=== PATIENT | female | born 1965 | race Caucasian/White ===

== ENCOUNTER 2024-02-22 11:26 | Outpatient (CLI) | payer MEDICARE, SELFPAY ==
--- NOTE | ~2024-02-22 | MM_ITS ---
EXAMINATION: MM screening christa BI w chen HISTORY: Screening TECHNIQUE: Craniocaudal and mediolateral oblique 3-D tomosynthesis images were obtained and synthetic 2-D images were generated. CAD analysis was submitted and interpreted. COMPARISON: No prior mammogram is available for comparison at this institution. BREAST PARENCHYMAL COMPOSITION: Not dense: There are scattered areas of fibroglandular density. FINDINGS: There is no evidence of suspicious mass, calcification, or architectural distortion to sugg est malignancy in either breast. There has been no suspicious interval change. IMPRESSION: 1. No mammographic evidence of malignancy. 2. Recommend routine screening mammography in one year. BI-RADS Category 1: Negative Reviewed, dictated and finalized at location B. CURER
== END 2024-02-22 11:27 | disposition home or self-care (01) ==
LOC: MICIMG 11:27
PROVIDERS: PCP Internal Medicine; Visit Provider Internal Medicine
DX: Z12.31 Encounter for screening mammogram for malignant neoplasm of breast (principal)
CPT/HCPCS: 77063; 77067

== ENCOUNTER 2024-10-27 11:53 | Outpatient (CLI) | payer OTHER, SELFPAY ==
--- NOTE | ~2024-10-27 | DEXA_ITS ---
Bone Density Report Name: MARY TAMAYO Age: 59 Sex: Female Ethnicity: White Date of : 1965 Indication: postmenopausal; screening for osteoporosis; Referring Provider: Cheryl Denny Study: Bone densitometry was performed. Exam Date: October 27, 2024 Accession number: [id number] Bone Density: Region BMD T-score Z-score Classification AP Spine(L1-L4) 0.995 -0.5 1.0 Normal Femoral Neck (Left) 0.714 -1.2 0.1 Osteopenia Total Hip (Left) 0.997 0.5 1.4 Normal Femoral Neck (Right) 0.787 -0.6 0.7 Normal Total Hip (Right) 0.975 0.3 1.2 Normal Femoral Neck Mean 0.750 -0.9 0.4 Normal Total Hip Mean 0.986 0.4 1.3 Normal World Health Organization criteria for BMD impression classify patients as: Normal (T-score at or above -1.0), Osteopenia (T-score between -1.0 and -2.5), or Osteoporosis (T-score at or below -2.5). 10-year Fracture Risk(1): Major Osteoporotic Fracture 7.5% Hip Fracture 0.5% Reported Risk Factors: [place] (), Neck BMD=0.714, BMI=26.6 (1) FRAX(R) Version 3.08. Fracture probability calculated for an untreated patient. Fracture probability may be lower if the patient has received treatment. Clinical Information Provided by Patient: Has used the following medications: Vitamin D, Calcium, multivitamin Patient maximum height was 53 Menopause Age: 47 No regular weight bearing exercise Does not regularly consume dairy products Drinks caffeinated beverages Onset of menses at age 11 Number of children 3 Missed period for more than 6 months in a row Impression: The patient has low bone mass, based on the Left Femoral Neck T-score. Discussion: BONE DENSITY IS LOW AT ONE OR MORE SKELETAL SITES. This patient's lowest T-score is low at one or more skeletal sites. It meets the World Health Organization's (WHO) criteria for ?low bone mass? (T-score between -1.0 and -2.5). The patient's 10-year risk of fracture as calculated by FRAX is less than the threshold where pharmacological therapy is recommended by the National Osteoporosis Foundation (NOF). However, all treatment decisions require clinical judgment and consideration of individual patient factors, including patient preferences, comorbidities, previous drug use, risk factors not captured in the FRAX model (e.g., frailty, falls, vitamin D deficiency, increased bone turnover, interval significant decline in bone density) and possible under or overestimation of fracture risk by FRAX. The patient should follow a healthful lifestyle (good nutrition with adequate calcium and vitamin D, and appropriate weight-bearing exercise). Follow-Up: Consider repeating this study in 2 to 3 years to reassess this patient's status, or sooner if there is some new clinical indication. Reported by: SHAWNA on 10/31/2024 7:40:00 AM. Reviewed, dictated and finalized at location A.
== END 2024-10-27 11:54 | disposition home or self-care (01) ==
PROVIDERS: PCP Internal Medicine; Visit Provider Internal Medicine
DX: Z78.0 Asymptomatic menopausal state (principal); M85.88 Other specified disorders of bone density and structure, other site
CPT/HCPCS: 77080

== ENCOUNTER 2025-01-08 07:47 | Outpatient (CLI) | payer MEDICARE, SELFPAY ==
--- OUTSIDE RECORDS SUMMARY | 2025-01-08 07:52 | XMS_ITS | Clinical Summary ---
Author Organization [facility] Address [address] [place] [address] Care Team Providers Care Fire And Explosion Investigator Name Role Phone Cara Aguilar MD Primary Care Provider Social History Tobacco Use Types Packs/Day Years Used Date Smoking Tobacco: Never Assessed Comments Unknown Sex and Gender Information Value Date Recorded Sex Assigned at Not on file Legal Sex Female 9:19 PM MST Gender Identity Not on file Sexual Orientation Not on file Plan of Treatment Health Maintenance Due Date Last Done Comments CT Colonography 1965 Cologuard 1965 Colonoscopy 1965 Colorectal Cancer Screening 1964 FOBT/FIT 1965 Sigmoidoscopy 1965 MMR Vaccines (1 of 1 - Standard series) 1965 PHQ-9 Depression Screen 1976 Complete Annual HRA 1982 LONNY-7 Anxiety Screen 1982 DTaP,Tdap,and Td Vaccines (1 - Tdap) 1983 Cervical Cancer Screening (Pap/HPV) 1985 Pneumococcal Vaccine: 50+ Years (2 of 2 - PCV20 or PCV21) 10/26/2018 10/26/2017 Mammogram 10/02/2021 10/03/2019, 03/09, 11/14/2018, Additional history exists COVID-19 Vaccine ( - season) 2024 05/20/2020, 05/08/2020, 04/27/2020, Additional history exists Influenza Vaccine (#1) 2024 01/07/2016 RSV Vaccine (SCDM) (1 - 1-dose 75+ series) 2039 Zoster Vaccines Completed 01/25/2018, 10/26/2017 Hepatitis B Vaccines Aged Out No long er eligible based on patient's age to complete this topic Procedures Procedure Name Priority Date/Time Associated Diagnosis Comments MAMMOGRAM, 3D SCREENING BILATERAL Routine 10/03/2019 11:46 AM [facility] Encounter for screening mammogram for malignant neoplasm of breast from Last 3 Months or Most Recently Relevant to Health Maintenance Results * Mammogram breast screening bilateral (10/03/2019 11:46 AM [facility]) Anatomical Region Laterality Modality Breast Bilateral Mammography 10/03/2019 11:4 6 AM MST Narrative 10/05/2019 11:58 AM [facility] LOCATION:[facility] DATE OF SERVICE: 10/03/2019 11:45 AM BILATERAL SCREENING MAMMOGRAM ORDERING PROVIDER: Alejandra Lobato INDICATION FOR STUDY/PERTINENT MEDICAL HX: Patient is a 54 years old female who presents for routine bilateral screening mammogram. TECHNIQUE: Routine bilateral craniocaudal and mediolateral oblique 2D views are obtained with 3D tomosynthesis images in craniocaudal and mediolateral oblique projections. COMPARISON: April 04, 2019, November 14, 2018, September 29, 2018, January 15, 2017 FINDINGS: Standard 3D with tomosynthesis views of the breasts demonstrate stable focal asymmetries. There are no dominant masses, suspicious clusters of microcalcifications, or areas of architectural distortion in either breast. There is no skin or nipple retraction or focal skin thickening in either breast. No axillary adenopathy is identified in either side. IMPRESSION: No mammographic evidence of malignancy. Recommend Return to screening mammography unless clinical symptoms dictate otherwise. ASSESSMENT: BI-RADS Category 1 Negative. Breast Composition: B: There are scattered areas of fibroglandular density Screening mammography performed with use of computer-aided detection (CAD). The patient will be notified of these results and any follow up imaging will be arranged by the medical imaging department. For questions or to reach a radiologist, please call [phone] . Procedure Note Rolanda Dominguez MD - 10/05/2019 LOCATION:[facility] DATE OF SERVICE: 10/03/2019 11:45 AM BILATERAL SCREENING MAMMOGRAM ORDERING PROVIDER: Alejandra Lobato INDICATION FOR STUDY/PERTINENT MEDICAL HX: Patient is a 54 years old female who presents for routine bilateralscreening mammogram. TECHNIQUE: Routine bilateral craniocaudal and mediolateral oblique 2Dviews are obtained with 3D tomosynthesis images in craniocaudal andmediolateral oblique projections. COMPARISON: April 04, 2019, November 14, 2018, September 29, 2018, 2016 FINDINGS: Standard 3D with tomosynthesis views of the breasts demonstratestable focal asymmetries. There are no dominant masses, suspiciousclusters of microcalcifications, or areas of architectural distortion ineither breast. There is no skin or nipple retraction or focal skinthickening in either breast. No axillary adenopathy is identified ineither side. IMPRESSION: No mammographic evidence of malignancy. Recommend Return to screening mammography unless clinical symptomsdictate otherwise. ASSESSMENT: BI-RADS Category 1 Negative. Breast Composition: B: There are scattered areas of fibroglandulardensity Screening mammography performed with use of computer-aided detection(CAD). The patient will be notified of these results and any follow up imagingwill be arranged by the medical imaging department. For questions or to reach a radiologist, please call [phone] . us Alejandra Lobato IMG BI PROCEDURES Final Result from Last 3 Months or Most Recently Relevant to Health Maintenance Care Teams Fire And Explosion Investigator Relationship Specialty [place] [address] [place] [address] PCP - General Family Medicine 12/23/18
--- OUTSIDE RECORDS SUMMARY | 2025-01-08 07:52 | XMS_ITS | Clinical Summary ---
Author Organization [facility] Address [address] [place] [address] Care Team Providers Care Mortgage Branch Manager Name Role Phone Non-Staff, Provider Primary Care Provider Unavai lable Allergies No known active allergies Medications nortriptyline (PAMELOR) 25 MG capsule Take 1 capsule (25 mg total) by mouth nightly at bedtime. Active SUMAtriptan (IMITREX) 100 MG tablet Take 1 tablet (100 mg total) by mouth 2 (two) times daily as needed for Migraine. Take 1 tablet at onset of symptoms, may take 1 tablet 2 hours later. Max of 2 tablets in 24-hour period. Active QUEtiapine (SEROQUEL) 100 MG tablet Take 1 tablet (100 mg total) by mouth nightly at bedtime. Active topiramate (TOPAMAX) 100 MG tablet Take 1 tablet (100 mg total) by mouth 2 (two) times daily. Active medroxyPROGESTE Yeison (PROVERA) 2.5 MG tablet Take 1 tablet (2.5 mg total) by mouth daily. Active busPIRone (BUSPAR) 15 MG tablet Take 1 tablet (15 mg total) by mouth 2 (two) times daily. Active ondansetron (ZOFRAN) 4 MG tablet Take 1 tablet (4 mg total) by mouth every 8 (eight) hours as needed for Nausea. Active montelukast (SINGULAIR) 10 MG tablet Take 1 tablet (10 mg total) by mouth nightly at bedtime. Active cyclobenzaprine (FLEXERIL) 10 MG tablet Take 1 tablet (10 mg total) by mouth 3 (three) times daily as needed for Muscle Spasms. 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 Gender Identity Not on file Sexual Orientation Not on file Last Filed Vital Signs Vital Sign Reading Time Taken Comments Blood Pressure 119/64 05/24/2024 12:27 PM CDT Pulse 90 05/24/2024 12:27 PM CDT Temperature 37 C (98.6 F) 05/24/2024 12:27 PM CDT Respiratory Rate 18 05/24/2024 12:27 PM CDT Oxygen Saturation 98% 05/24/2024 12:27 PM CDT Inhaled Oxygen Concentration - - Weight 70.3 kg (155 lb) 05/17/2024 11:31 AM CDT Height 160 cm (5' 3) 05/17/2024 11:31 AM CDT Body Mass Index 27.46 05/17/2024 11:31 AM CDT Plan of Treatment Health Maintenance Due Date Last Done Comments Cervical Cancer Screening Pa p Smear (Age 30 to 64) Every 3 Years 1964 Colorectal Cancer Screening Colonoscopy (10 Years) 1964 Annual Physical 1967 Hepatitis C 1982 DTaP, Tdap and Td Vaccines ( 1 - Tdap) 1983 Cervical Cancer Screening Pa p with HPV Testing (Age 30 to 64) Every 5 Years 1994 Cervical Cancer Screening wi HPV 1994 Pneumococcal Vaccine: 50+ Years (1 of 1 - PCV) 2014 Zoster Vaccines (1 of 2) 2014 Mammogram Screening 10/02/2021 10/03/2019, 10/17/2018 COVID-19 Vaccine (2024-2 6 season) 2024 Influenza Adult (#1) 2024 RSV Immunization or 60+ Years (1 - 1-dose 75+ series) 2039 Hepatitis A Vaccines Aged Out No long er eligible based on patient's age to complete this topic Meningococcal B Vaccine Aged Out No l onger eligible based on patient's age to complete this topic Meningococcal Vaccine Aged Out No [place] eligible based on patient's age to complete this topic RSV Immunizations Under 20 Months Aged Out No longer eligible b ased on patient's age to complete this topic Medical Devices Implanted Type Area Drip Pumper Device Identifier Shelf Expiration Date Model / Serial / Lot Iol [employer]ec[employer] Simplicity Dcb00 - [id number] Implanted:Qty: 1 on 04/26/2024 by Sarah Beth Perera MD at [facility] Lens Left: Eye [employer] [id number] 01/10/2026 DCB00 / [id number] / [id number] Iol [employer] Simplicity Dcb00 - [id number] Implanted:Qty: 1 on 05/24/2024 by Sarah Beth Perera MD at [facility] Lens Right: Eye [employer] [id number] 09/09/2026 DCB00 / [id number] / [id number] Insurance [facility] MED[facility] Care Teams Mortgage Branch Manager Relationship Specialty Start Date End Date Non-Staff, Provider PCP - General UNKNOWN PHYSICIAN SPECIALTY 04/19/24
--- OUTSIDE RECORDS SUMMARY | 2025-01-08 07:52 | XMS_ITS | Data Portability ---
Author Organization [facility] autoContract [facility] Address [address] [place] [address] Care Team Providers Care Pilot Submersible Name Role Phone EDGAR (PAIN STOP), MATI Referring Provider DAWOOD KENDRICK Primary Care Provider [facility] Pain Management Assessment Encounter Date Assessment Date Assessment LastModified by Organization Details LastModified Time 10/01/2020 10/01/2020 Imaging studies: I independently visualized all of the imaging studies discussed below and also reviewed the radiologist's reports. Upright 4 view radiographs lumbar spine: Advanced L5-S1 degenerative disc disease with retrolisthesis of L5 on S1 and associated facet arthropathy. Very mild/trace anterior listhesis of L4 on L5 that does not move on flexion and extension. MRI lumbar spine October 2019: Advanced L5-S1 degenerative disc disease with retrolisthesis of L5 and S1. Mild left lateral recess stenosis. Bilateral foraminal stenosis. Assessment: 1. Advanced L5-S1 degenerative disc disease 2. L5-S1 spondylosis 3. Retrolisthesis of L5 on S1 4. Lumbar spinal stenosis with radiculopathy 5. Chronic low back pain 6. History of previous right L5-S1 decompression surgery performed by another surgeon 7. Trace/very mild L4-L5 spondylolisthesis without dynamic instability 8. Failure of conservative measures including time, activity/lifestyle modifications, epidural injections/pain management Plan: A total of 50 minutes were spent on this follow-up encounter. Patient returns today with continued complaints of chronic low back pain as well as radicular pain into the bilateral lower extremities. Spinal imaging reveals advanced L5-S1 degenerative disc disease with retrolisthesis of L5 on S1 and facet arthropathy with resultant lateral recess and foraminal narrowing. For her symptoms the patient has trialed and failed numerous nonoperative measures including time, activity/lifestyle modifications and epidural injections/pain management. She also previously underwent a spinal cord stimulator trial and reported approximately 60% pain relief with that. She does have fibromyalgia and some of her radiating pain is nondermatomal pattern. At this time, the patient does not wish to undergo a spinal cord stimulator implantation. We can always perform this down the road if need be. I counseled the patient that her fibromyalgia related symptoms would not improve with surgery. The surgical plan is discussed with the patient will be for staged surgery. Stage I: L5-S1 anterior lumbar interbody fusion with placement of interbody cage. Stage II: L5-S1 posterior spinal instrumentation and fusion, bilateral L5-S1 laminotomies, facetectomies and foraminotomies. The risks of operative intervention were discussed with the patient including but not limited to continued pain, numbness, weakness, infection, bleeding, neurologic injury including paralysis, dural tear, pseudoarthrosis, adjacent level disease, hardware loosening or breakage, need for future spinal operations, injury to abdominal and retroperitoneal contents, vascular injury which could be life-threatening, hernia formation, as well as perioperative medical risks including DVT, PE, OR, stroke. In light of this the patient wishes to proceed. This patient will required a brace to facilitate healing and reduce pain following a surgical procedure Yomi Lemus, [facility] Not available 10/10/2020 17:32:16 12/17/2020 12/17/2020 Imaging studies: I independently visualized all of the imaging studies discussed below. 12/17/2020 XR Lspine AP/Lateral:reveals hardware in good position, with appropriate spinal alignment, no evidence of migration or failure. Images compared to x-ray fluoroscopy taken in OR on 11/21/2020. Impression: 1.status post multi staged lumbar surgery stage I L5-S1 anterior lumbar interbody fusion, placement of titanium, lordotic interbody cage with integral fixation, L5-S1 date of surgery 11/20/[address] Lemus stage II L5-S1 posterior lateral arthrodesis, L5-S1 posterior spinal instrumentation performed by Dr. Lemus on 11/21/2020 2. advanced L5-S1 degenerative disc disease 3. L5-S1 spondylosis 4.retrolisthesis of L5 on S1 5. lumbar spinal stenosis with radiculopathy 6.chronic low back pain 7. history of previous right L5-S1 decompression surgery performed by another surgeon 8. trace/very mild L4-L5 spondylolisthesis without dynamic instability 9. Patient doing well postoperatively Plan: I discussed patient's symptoms, physical exam findings, imaging studies, diagnoses, treatment options, and treatment plan with the patient in great detail. There were no apparent barriers to learning. All questions were answered. I showed the patient their imaging studies. The patient will continue to wear their lumbar brace when out of bed for 3 months postoperatively. No lifting more than 15 pounds, no bending or twisting for 3 months postoperatively. -Patient may shower -No bathing or submerging in water until cleared after next postop visit. -Keep abdominal incision site clean and dry. No dressing changes needed healing well. -Posterior surgical incision site healed Follow-up in 3 weeks with PA/ROLLWAY MAN. WithAP lateral upright lumbar spine radiograph. The patient was agreeable and understood the above plan. This note was generated using the [employer] voice recognition system. Grammatical errors and misplaced words may occur despite proofreading attempts. Please contact me for any clarification if needed. Oriana Esqueda, [facility] [place] [facility] Not available 12/17/2020 18:31:56 01/16/2021 01/16/2021 Imaging studies: I independently visualized all of the imaging studies discussed below. 01/16/2021 XR Lspine AP/Lateral:reveals hardware in good position, with appropriate spinal alignment, no evidence of migration or failure. Images compared to x-ray taken on 12/17/2020. Impression: 1.status post multi staged lumbar surgery stage I L5-S1 anterior lumbar interbody fusion, placement of titanium, lordotic interbody cage with integral fixation, L5-S1 date of surgery 11/20/[address] Lemus stage II L5-S1 posterior lateral arthrodesis, L5-S1 posterior spinal instrumentation performed by Dr. Lemus on 11/21/2020 2. advanced L5-S1 degenerative disc disease 3. L5-S1 spondylosis 4.retrolisthesis of L5 on S1 5. lumbar spinal stenosis with radiculopathy 6.chronic low back pain 7. history of previous right L5-S1 decompression surgery performed by another surgeon 8. trace/very mild L4-L5 spondylolisthesis without dynamic instability 9. Patient doing well postoperatively Plan: I discussed patient's symptoms, physical exam findings, imaging studies, diagnoses, treatment options, and treatment plan with the patient in great detail. There were no apparent barriers to learning. All questions were answered. I showed the patient their imaging studies. The patient will continue to wear their lumbar brace when out of bed for 3 months postoperatively. No lifting more than 15 pounds, no bending or twisting for 3 months postoperatively. -Posterior surgical incision site healed Follow-up in 4 weeks with PA/ROLLWAY MAN. WithAP lateral upright lumbar spine radiograph. The patient was agreeable and understood the above plan. Patient was given specific ER precautions regarding worsening back pain, saddle anesthesia, or bowel or bladder incontinence. The patient verbalized understanding of these symptoms which require urgent evaluation in the ER. I spent approximately 35 minutes in consultation with the patient, reviewing imaging results, and developing a treatment plan. Trevor Herndon PA-C [facility] [place] Not available 01/16/2021 16:08:31 04/15/2021 04/15/2021 Imaging studies: I independently visualized all of the imaging studies discussed below. 04/15/2021 XR Lspine AP/Lateral:reveals hardware in good position, with appropriate spinal alignment, no evidence of migration or failure. Images compared to x-ray taken on 12/17/2020. Impression: 1. s/p 2 stage lumbar surgery. Stage I: L5-S1 anterior lumbar interbody fusion, placement of titanium, lordotic interbody cage with integral fixation, L5-S1 date of surgery 11/20/[address] Lemus 2. Stage II: L5-S1 posterior lateral arthrodesis, L5-S1 posterior spinal instrumentation performed by Dr. Lemus on 11/21/2020 3.chronic low back pain 4. history of previous right L5-S1 decompression surgery performed by another surgeon 5. trace/very mild L4-L5 spondylolisthesis without dynamic instability 6. Patient doing well postoperatively Plan: I discussed patient's symptoms, physical exam findings, imaging studies, diagnoses, treatment options, and treatment plan with the patient in great detail. There were no apparent barriers to learning. All questions were answered. I showed the patient their imaging studies. Patient should follow-up in 6 to 7 months for a 1 year follow-up. At that time, patient will need upright AP/Lateral/flexion/ extension x-rays. The patient was agreeable and understood the above plan. Patient was given specific ER precautions regarding worsening back pain, saddle anesthesia, or bowel or bladder incontinence. The patient verbalized understanding of these symptoms which require urgent evaluation in the ER. Willy Yost, [facility] [place] Not available 04/15/2021 11:06:48 10/28/2021 10/28/2021 Imaging studies: I independently visualized all of the imaging studies discussed below. 10/28/2021 XR Lspine AP/Lateral:reveals hardware in good position, with appropriate spinal alignment, no evidence of migration or failure. Images compared to x-ray taken on 12/17/2020. Multiple levels of degenerative changes. No fractures. Impression: 1. s/p 2 stage lumbar surgery. Stage I: L5-S1 anterior lumbar interbody fusion, placement of titanium, lordotic interbody cage with integral fixation, L5-S1 date of surgery 11/20/[address] Lemus 2. Stage II: L5-S1 posterior lateral arthrodesis, L5-S1 posterior spinal instrumentation performed by Dr. Lemus on 11/21/2020 3.chronic low back pain 4. history of previous right L5-S1 decompression surgery performed by another surgeon 5. trace/very mild L4-L5 spondylolisthesis without dynamic instability 6. Patient doing well postoperatively Plan: I discussed patient's symptoms, physical exam findings, imaging studies, diagnoses, treatment options, and treatment plan with the patient in great detail. There were no apparent barriers to learning. All questions were answered. I showed the patient their imaging studies. Patient continues to do well postoperatively related to her left leg radicular symptoms. For the patient's right posterior thigh pain I will start the patient on a Medrol Dosepak to help with any inflammation. I have instructed the patient that if this does not improve she can contact her office and we will send the patient a physical therapy referral to work on some stretching and strengthening of her lower extremities. The patient may follow-up on an as-needed basis or return if her symptoms worsen. The patient was agreeable and understood the above plan. Patient was given specific ER precautions regarding worsening back pain, saddle anesthesia, or bowel or bladder incontinence. The patient verbalized understanding of these symptoms which require urgent evaluation in the ER. Willy Yost, [facility] [place] Not available 10/28/2021 13:41:18 Plan of Treatment Reminders Order Date Submit Date Provider Last Modified By Organization Details Last Modified Time Details Appointments None recorded. Lab CBC w/ diff - ADDITIONAL DIAGNOSIS: E55.9, D68.9 2020 021 [facility], [address], [address], [place], [address], 11:10:15 CMP, serum or plasma - ADDITIONAL DIAGNOSIS: E55.9, D68.9 2020 021 [facility], [address], [address], [place], [address], 11:10:16 PT/INR - ADDITIONAL DIAGNOSIS: E55.9, D68.9 2020 021 [email or web address] [facility], [address], [address], [place], [address], 22:11:51 partial thromboplas tin time 2020 021 [email or web address] [facility], [address], [address], [place], [address], 22:11:51 urinalysis, reflex culture - ADDITIONAL DIAGNOSIS IF CULTURE INDICATED:N 39.0 ; CLEAN CATCH UA SAMPLE PLEASE. 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 Procedures None recorded. Surgeries arthrodesis , lumbar, by anterior interbody technique (SURG) 2020 [facility], [address], [place], [address], 14:56:50 Imaging XR, lumbosacral spine, 4 or more view 2021 [email or web address] [facility], [address], [address], [place], [address], 2 14:38:48 XR, lumbosacral spine, 2 or 3 view 2021 022 [email or web address] [facility] [place], [address], [address], [place], [address], 2 15:02:37 XR, lumbosacral spine, 2 or 3 view 2020 021 [email or web address] [facility], [address], [address], [place], [address], 23:27:16 XR, lumbosacral spine, 2 or 3 view 2020 021 [email or web address] [facility], [address], [address], [place], [address], 14:55:44 Medication Orders Medrol (Gilles) 4 mg tablets in a dose pack 2021 [id number], [address], [place], [place], [id number], 13:42:21 Patient TargetsNo targets recorded. Patient Instructions Encounter Date Encounter Id Patient Instructions Last Modified By Organization Details Last Modified Time 10/01/2020 [id number] eating healthy foods: care instructions [email or web address] Not available 10/01/2020 22:11:51 01/16/2021 [id number] eating healthy foods: care instructions Not available 01/16/2021 16:08:36 04/15/2021 [id number] eating healthy foods: care instructions Not available 04/15/2021 10:59:43 10/28/2021 [id number] eating healthy foods: care instructions Not available 10/28/2021 14:38:48 Reason for Referral None Reported. Results Created Date Observation Date Name Description Value Unit Range Abnormal Flag Note LastModifiedBy Organization Detail LastModifiedTime 11/01/1911/01/2020 CBC/D /PLT WBC 6.5 x10e3 /uL 3.4-10 .8 Not Available [facility] ([facility]) [address] [place], [address], 11/01/2020 11:10:15 11/01/1911/01/2020 CBC/D /PLT RBC 4.40 x10e6 /uL 3.77-5 .28 Not Available [facility] ([facility]) [address] [place], [address], 11/01/2020 11:10:15 11/01/19 21 11/01/2020 CBC/D /PLT hemoglobin 12.9 g/dL 11.1-1 5.9 Not Available [facility] ([facility]) [address] [place], [address], 11/01/2020 11:10:15 11/01/19 21 11/01/2020 CBC/D /PLT hematocrit 40.1 % 34.0-4 6.6 Not Available [facility] ([facility]) [address] [place], [address], 11/01/2020 11:10:15 11/01/19 21 11/01/2020 CBC/D /PLT MCV 91 fL 79-97 Not Available [facility] ([facility]) [address] [place], [address], 11/01/2020 11:10:15 11/01/19 21 11/01/2020 CBC/D /PLT MCH 29.3 pg 26.6-3 3.0 Not Available [facility] ([facility]) [address] [place], [address], 11/01/2020 11:10:15 11/01/19 21 11/01/2020 CBC/D /PLT MCHC 32.2 g/dL 31.5-3 5.7 Not Available [facility] ([facility]) [address] [place], [address], 11/01/2020 11:10:15 11/01/19 21 11/01/2020 CBC/D /PLT RDW 12.7 % 11.7-1 5.4 Not Available [facility] ([facility]) [address] [place], [address], 11/01/2020 11:10:15 11/01/19 21 11/01/2020 CBC/D /PLT platelets 252 x10e3 /uL 150-45 0 Not Available [facility] ([facility]) [address] [place], [address], 11/01/2020 11:10:15 11/01/19 21 11/01/2020 CBC/D /PLT neutrophils 49 % not estab. Not Available [facility] ([facility]) [address] [place], [address], 11/01/2020 11:10:15 11/01/19 21 11/01/2020 CBC/D /PLT lymphs 39 % not estab. Not Available [facility] ([facility]) [address] [facility], [place], [address], 11/01/2020 11:10:15 11/01/19 21 11/01/2020 CBC/D /PLT monocytes 5 % not estab. Not Available [facility] ([facility]) [address] [place], [address], 11/01/2020 11:10:15 11/01/19 21 11/01/2020 CBC/D /PLT eos 5 % not estab. Not Available [facility] ([facility]) [address] [place], [address], 11/01/2020 11:10:15 11/01/19 21 11/01/2020 CBC/D /PLT basos 2 % not estab. Not Available [facility] ([facility]) [address] [facility], [place], [address], 11/01/2020 11:10:15 11/01/19 21 11/01/2020 CBC/D /PLT immature cells ROLLWAY MAN Not Available [facility] ([facility]) [address] [place], [address], 11/01/2020 11:10:15 11/01/19 21 11/01/2020 CBC/D /PLT neutrophils (absolute) 3.2 x10e3 /uL 1.4-7. 0 Not Available [facility] ([facility]) [address] [place], [address], 11/01/2020 11:10:15 11/01/19 21 11/01/2020 CBC/D /PLT lymphs (absolute) 2.5 x10e3 /uL 0.7-3. 1 Not Available [facility] ([facility]) [address] [place], [address], 11/01/2020 11:10:15 11/01/19 21 11/01/2020 CBC/D /PLT monocytes(ab solute) 0.3 x10e3 /uL 0.1-0. 9 Not Available [facility] ([facility]) [address] [facility], [place], [address], 11/01/2020 11:10:15 11/01/19 21 11/01/2020 CBC/D /PLT eos (absolute) 0.3 x10e3 /uL 0.0-0. 4 Not Available [facility] ([facility]) [address] [facility], [place], [address], 11/01/2020 11:10:15 11/01/19 21 11/01/2020 CBC/D /PLT baso (absolute) 0.1 x10e3 /uL 0.0-0. 2 Not Available [facility] ([facility]) [address] [facility], [place], [address], 11/01/2020 11:10:15 11/01/19 21 11/01/2020 CBC/D /PLT immature granulocytes 0 % not estab. Not Available [facility] ([facility]) [address] [facility], [place], [address], 11/01/2020 11:10:15 11/01/19 21 11/01/2020 CBC/D /PLT immature grans (abs) 0.0 x10e3 /uL 0.0-0. 1 Not Available [facility] ([facility]) [address] [facility], [place], [address], 11/01/2020 11:10:15 11/01/19 21 11/01/2020 CBC/D /PLT NRBC ROLLWAY MAN Not Available [facility] ([facility]) [address] [facility], [place], [address], 11/01/2020 11:10:15 11/01/19 21 11/01/2020 CBC/D /PLT hematology comments: ROLLWAY MAN Not Available [facility] ([facility]) [address] [facility], [place], [address], 11/01/2020 11:10:15 11/01/19 21 11/01/2020 COMP. METAB OLIC PANEL (14) glucose 127 mg/dL 65-99 above high normal Not Available [facility] ([facility]) [address] [place], [address], 11/01/2020 11:10:16 11/01/19 21 11/01/2020 COMP. METAB OLIC PANEL (14) BUN 6 mg/dL 6-24 Not Available [facility] ([facility]) [address] [facility], [place], [address], 11/01/2020 11:10:16 11/01/19 21 11/01/2020 COMP. METAB OLIC PANEL (14) creatinine 0.87 mg/dL 0.57-1 .00 Not Available [facility] ([facility]) [address] [place], [address], 11/01/2020 11:10:16 11/01/19 21 11/01/2020 COMP. METAB OLIC PANEL (14) eGFR if nonafricn AM 75 mL/mi n/1.7 3 >59 Not Available [facility] ([facility]) [address] [facility], [place], [address], 11/01/2020 11:10:16 11/01/19 21 11/01/2020 COMP. METAB OLIC PANEL (14) eGFR if africn AM 86 mL/mi n/1.7 3 >59 Lab brayden curre ntly repor ts eGFR in compl iance with the curre nt recom menda tions of the [facility] ation . [facility] will updat e repor ting as new guide lines are publi shed from the NKF-A SN Task force . Not Available [facility] ([facility]) [address] [facility], [place], [address], 11/01/2020 11:10:16 11/01/19 21 11/01/2020 COMP. METAB OLIC PANEL (14) BUN/creatini ne ratio 7 9-23 below low normal Not Available [facility] ([facility]) [address] [place] [place], [address], 11/01/2020 11:10:16 11/01/19 21 11/01/2020 COMP. METAB OLIC PANEL (14) sodium 142 mmol/ L 134-14 4 Not Available [facility] ([facility]) [address] [place] [place], [address], 11/01/2020 11:10:16 11/01/19 21 11/01/2020 COMP. METAB OLIC PANEL (14) potassium 4.2 mmol/ L 3.5-5. 2 Not Available [facility] ([facility]) [address] [facility], [place], [address], 11/01/2020 11:10:16 11/01/19 21 11/01/2020 COMP. METAB OLIC PANEL (14) chloride 109 mmol/ L 96-106 above high normal Not Available [facility] ([facility]) [address] [place] [place], [address], 11/01/2020 11:10:16 11/01/19 21 11/01/2020 COMP. METAB OLIC PANEL (14) carbon dioxide, total 20 mmol/ L 20-29 Not Available [facility] ([facility]) [address] [place], [address], 11/01/2020 11:10:16 11/01/19 21 11/01/2020 COMP. METAB OLIC PANEL (14) calcium 9.6 mg/dL 8.7-10 .2 Not Available [facility] ([facility]) [address] [place], [address], 11/01/2020 11:10:16 11/01/19 21 11/01/2020 COMP. METAB OLIC PANEL (14) protein, total 7.2 g/dL 6.0-8. 5 Not Available [facility] ([facility]) [address] [place], [address], 11/01/2020 11:10:16 11/01/19 21 11/01/2020 COMP. METAB OLIC PANEL (14) albumin 4.9 g/dL 3.8-4. 9 Not Available [facility] ([facility]) [address] [place], [address], 11/01/2020 11:10:16 11/01/19 21 11/01/2020 COMP. METAB OLIC PANEL (14) globulin, total 2.3 g/dL 1.5-4. 5 Not Available [facility] ([facility]) [address] [place], [address], 11/01/2020 11:10:16 11/01/19 21 11/01/2020 COMP. METAB OLIC PANEL (14) A/G ratio 2.1 1.2-2. 2 Not Available [facility] ([facility]) [address] [place], [address], 11/01/2020 11:10:16 11/01/19 21 11/01/2020 COMP. METAB OLIC PANEL (14) bilirubin, total <0.2 mg/dL 0.0-1. 2 Not Available [facility] ([facility]) [address] [place], [address], 11/01/2020 11:10:16 11/01/19 21 11/01/2020 COMP. METAB OLIC PANEL (14) alkaline phosphatase 125 IU/L 48-121 above high normal Not Available [facility] ([facility]) [address] [place], [address], 11/01/2020 11:10:16 11/01/19 21 11/01/2020 COMP. METAB OLIC PANEL (14) AST (SGOT) 24 IU/L 0-40 Not Available [facility] ([facility]) [address] [facility], [place], [address], 11/01/2020 11:10:16 11/01/19 21 11/01/2020 COMP. METAB OLIC PANEL (14) ALT (SGPT) 25 IU/L 0-32 Not Available [facility] ([facility]) [address] [facility], [place], [address], 11/01/2020 11:10:16 11/01/19 21 11/01/2020 PTT, ACTIV ATED APTT 29 sec 24-33 This test has not been valid ated for monit oring unfra ction ated hepar in thera py. aPTT- based thera peuti c range s for unfra ction ated hepar in thera py have not been estab lislizett brower. For gener al guide lines on Hepar in monit oring , refer to the [facility] [employer] alvares. Not Available [facility] ([facility]) [address] [facility], [place], [address], 11/01/2020 11:10:17 11/27/19 21 11/21/2020 CT, lumba r spine , w/o contr ast No observ ation record ed. [facility] Not Available 2020 12:14:22 11/27/19 21 11/23/2020 XR, lumbo sacra l spine , 2 or 3 view No observ ation record ed. [facility] Not Available 2020 12:14:22 11/29/19 XR, lumbo sacra l spine , 2 or 3 view No observ ation record ed. [email or web address] [facility] [address], [place], [address], 12/17/2020 18:31:58 01/16/20 XR, lumbo sacra l spine , 2 or 3 view No observ ation record ed. [email or web address] [facility] [address], [place], [address], 01/16/2021 16:08:33 04/15/19 22 XR, lumbo sacra l spine , 2 or 3 view No observ ation record ed. [email or web address] [facility] [place] [address], [place], [address], 04/15/2021 10:59:40 10/11/19 22 XR, lumbo sacra l spine , 4 or more view No observ ation record ed. [email or web address] [facility] [place] [address], [place], [address], 10/28/2021 13:41:25 Result Notes None recorded. Procedures Surgical History Date Name Laterality Status Provider Name and Address Organization Details Recorded Time Sinus Surgery completed [facility] 07/23/2020 15:07:26 Back Surgery completed [facility] 07/23/2020 15:07:26 ARTHRODESIS, LUMBAR, BY ANTERIOR INTERBODY TECHNIQUE (SURG) completed Not Available [facility] 11/25/2020 14:56:50 ARTHRODESIS, LUMBAR, POSTERIOR TECHNIQUE (SURG) completed Not Available [facility] 11/25/2020 15:02:05 Imaging Results None recorded. Procedure Notes None recorded. Medical Equipment None Reported. Allergies No known drug allergies Medications Name Sig Start Date Stop Date Status Note LastModified by Organization Details LastModified Time cyclobenzap rine 10 mg tablet TAKE 1 TABLET BY MOUTH THREE TIMES DAILY NEEDED FOR PAIN active Not Available Not Available No t Available tizanidine 4 mg tablet TAKE 1 TABLET BY MOUTH EVERY 8 HOURS NEEDED 10/28 completed Not Available Not Available Not Available sumatriptan 100 mg tablet TAKE 1 TABLET BY MOUTH AT ONSET OF HEADACHE. MAY REPEAT IN 2 HOURS NEEDED. NO MORE THAN 2 TABLETS IN 24 HOURS NEEDED active Not Available Not Available No t Available medroxyprog esterone 2.5 mg tablet TAKE 1 TABLET BY MOUTH EVERY DAY active Not Available Not Available No t Available hydrocodone 5 mg-acetamin ophen 325 mg tablet TAKE 1 TABLET BY MOUTH FOUR TIMES DAILY NEEDED FOR PAIN 10/01 completed Not Available Not Available Not Available meloxicam 15 mg tablet TAKE 1 TABLET BY MOUTH EVERY DAY active Not Available Not Available No t Available prednisone 20 mg tablet active Not Available Not Available Not Available acetaminoph en 300 mg-codeine 30 mg tablet TAKE 1 TABLET BY MOUTH TWICE DAILY NEEDED FOR PAIN 07/23 completed Not Available Not Available Not Available oxycodone-a cetaminophe n 5 mg-325 mg tablet TAKE 1 TABLET BY MOUTH FOUR TIMES DAILY NEEDED FOR PAIN 07/23 completed Not Available Not Available Not Available methocarbam ol 750 mg tablet TAKE 1 TABLET BY MOUTH FOUR TIMES DAILY NEEDED FOR PAIN active Not Available Not Available No t Available oxycodone-a cetaminophe n 10 mg-325 mg tablet TAKE 1 TABLET BY MOUTH EVERY 4 HOURS FOR 14 DAYS NEEDED FOR PAIN 10/28 completed Not Available Not Available Not Available hydrocodone 7.5 mg-acetamin ophen 325 mg tablet TAKE 1 TABLET BY MOUTH THREE TIMES DAILY NEEDED FOR PAIN active Not Available Not Available No t Available cephalexin 500 mg capsule TAKE 1 CAPSULE BY MOUTH TWICE DAILY FOR 10 DAYS 10/01 completed Not Available Not Available Not Available gabapentin 300 mg capsule TAKE 3 CAPSULES BY MOUTH THREE TIMES DAILY active Not Available Not Available No t Available montelukast 10 mg tablet TAKE 1 TABLET BY MOUTH EVERY DAY IN THE EVENING active Not Available Not Available No t Available estradiol 0.5 mg tablet TAKE 1 TABLET BY MOUTH EVERY DAY active Not Available Not Available No t Available zolpidem 10 mg tablet TAKE 1 TABLET BY MOUTH EVERY DAY AT BEDTIME active Not Available Not Available No t Available methylpredn isolone 4 mg tablets in a dose pack FOLLOW PACKAGE DIRECTION S active Not Available Not Available No t Available topiramate 100 mg tablet TAKE 1 TABLET BY MOUTH TWICE DAILY active Not Available Not Available No t Available nortriptyli ne 50 mg capsule TAKE 1 CAPSULE BY MOUTH AT BEDTIME active Not Available Not Available No t Available progesteron e micronized 100 mg capsule TAKE 1 CAPSULE BY MOUTH EVERY NIGHT AT BEDTIME active Not Available Not Available No t Available buspirone 15 mg tablet TAKE 1 TABLET BY MOUTH TWICE DAILY active Not Available Not Available No t Available oxycodone 5 mg tablet TAKE 1 TABLET BY MOUTH EVERY 4 HOURS NEEDED FOR MODERATE PAIN 10/28 completed Not Available Not Available Not Available hydrocodone -acetaminop hen 750 mg-7.5 mg tablet Take 1 tablet every 4 hours by oral route. 10/28 completed Not Available Not Available Not Available duloxetine 30 mg capsule,del ayed release TAKE 3 CAPSULES BY MOUTH EVERY DAY active Not Available Not Available No t Available duloxetine 60 mg capsule,del ayed release TK 1 C PO QD active Not Available Not Available No t Available buprenorphi ne 20 mcg/hour weekly transdermal patch APPLY 1 PATCH EXTERNALL Y TO THE SKIN EVERY WEEK 10/01 completed Not Available Not Available Not Available Vitals Date Recorded Body height Body mass index (BMI) Body weight Body temperature Pain severity - 0-10 verbal numeric rating [Score] - Reported Heart rate Oxygen saturation Oxygen saturation in Arterial blood by Pulse oximetry Systolic And Diastolic Provider Name and Address Organization Details Last Updated DateTime 2 160.02 cm 28 kg/m2 26705.5 9 g 97.7 [degF] 4 92 /min 97 % 97 % 128/80 mm[Hg] [facility] 10:[facility]03 Date Recorded Body height Body mass index (BMI) Body weight Pain severity - 0-10 verbal numeric rating [Score] - Reported Body temperature Heart rate Oxygen saturation Oxygen saturation in Arterial blood by Pulse oximetry Systolic And Diastolic Provider Name and Address Organization Details Last Updated DateTime 1 160.02 cm 28.1 kg/m2 09655.3 9 g 9 97.8 [degF] 99 /min 99 % 99 % 102/69 mm[Hg] Vernell Hathaway [facility] 1 12:36:08 Date Recorded Body height Body mass index (BMI) Body weight Body temperature Heart rate Oxygen saturation Oxygen saturation in Arterial blood by Pulse oximetry Systolic And Diastolic Provider Name and Address Organization Details Last Updated DateTime 2 160.02 cm 27.3 kg/m2 23397.2 2 g 98.2 [degF] 89 /min 99 % 99 % 124/79 mm[Hg] Christine Tovar [facility] 2 13:00:47 Date Recorded Body height Body mass index (BMI) Body weight Body temperature Heart rate Oxygen saturation Oxygen saturation in Arterial blood by Pulse oximetry Systolic And Diastolic Provider Name and Address Organization Details Last Updated DateTime 1 160.02 cm 28 kg/m2 04593.5 9 g 97.1 [degF] 99 /min 99 % 99 % 102/69 mm[Hg] Deejay Rubi [facility] 13:03:19 Social History Question Answer Notes LastModified by Organizat ion Details LastModified Time Tobacco Sm[place] [address], [place], [address], [facility] 07/23/2020 23:03:24 Do You Have An Advance Directive? No 04/15/2021 [email or web address] Information not available 04/15/2021 Are You Blind Or Do You Have Difficulty Seeing? Yes [email or web address] Information not available 10/28/2021 Is Blood Transfusion Acceptable In An Emergency? Yes Information not available 01/16/2021 What Is Your Level Of Caffeine Consumption? Occasional [email or web address] Information not available 10/28/2021 Are You Deaf Or Do You Have Serious Difficulty Hearing? No [email or web address] Information not available 10/28/2021 What Type Of Diet Are You Following? REGULAR [email or web address] Information not available 10/28/2021 Which Of Your Hands Is Dominant? Right Information not available 10/28/2021 If Pulse Oximetry Was Done: Is The Patient's Sp02 Less Than 93% On Room Air? No [email or web address] Information not available 01/16/2021 Marital Status [email or web address] Informatio n not available 10/28/2021 What Was The Date Of Your Most Recent Tobacco Screening? 10/28/2021 [email or web address] Information not available 10/28/2021 Do You Have Any Pets? Yes [email or web address] Information not available 10/28/2021 What Is Your Relationship Status? [email or web address] Information not available 10/01/2020 Sex: Unknown Functional Status Question Answer Note LastModified by Organizat ion Details LastModified Time Do you use any illicit or recreational drugs? No [email or web address] Information not available 10/28/2021 Do you or have you ever used any other forms of tobacco or nicotine? No [email or web address] Information not available 10/28/2021 Are you currently employed? No [email or web address] Information not available 10/28/2021 Are you able to care for yourself independently? Yes [email or web address] Information not available 01/16/2021 What is your exercise level? Occasional [email or web address] Information not available 10/28/2021 Mental Status Question Answer Note LastModified by Organization D etails LastModified Time Do you feel stressed (tense, restless, nervous, or anxious, or unable to sleep at night)? [id number] Information not available 10/28/2021 Family History Relationship Description Onset Age of this Age Resolved Age Notes LastModified by Organization Details LastModified Time Maternal Grandmother Osteoporosis [email or web address] Not available 07/23/2020 15:06:43 Maternal Grandmother Malignant neoplasm of breast [email or web address] Not available 2020 15:06:43 Maternal Grandmother Diabetes mellitus [email or web address] Not available 2020 15:06:43 Mother Depressive disorder [email or web address] Not available 2020 15:06:43 Mother Myocardial infarction [email or web address] Not available 07/23 15:06:43 Father Rheumatoid arthritis [email or web address] Not available 2020 15:06:43 Father Hypertensive disorder [email or web address] Not available 2020 15:06:43 Unspecified Relation Family history of malignant neoplasm [email or web address] Not available 2020 15:06:43 Maternal Grandfather Hypertensive disorder [email or web address] Not available 2020 15:06:43 Maternal Grandfather Rheumatoid arthritis [email or web address] Not available 2020 15:06:43 Paternal Grandmother Malignant neoplasm of breast [email or web address] Not available 2020 15:06:43 Paternal Grandmother Hypertensive disorder [email or web address] Not available 2020 15:06:43 Sister Depressive disorder [email or web address] Not available 2020 15:06:43 Sister Malignant neoplasm of breast [email or web address] Not available 2020 15:06:43 Sister Diabetes mellitus [email or web address] Not available 2020 15:06:43 Medical History Condition Response Anxiety Y Osteopenia/Osteoporosis Y Back/Neck Pain Y Spine Disease (Herniated Disc, Scoliosis , Stenosis) Y Gastrointestinal Disease (IBS, Gastritis , Ulcer, Acid Reflux) Y Multiple Sclerosis Y Chronic Pain Disorder Y Headaches/Migraines Y Fibromyalgia Y Gynecological HistoryNo gynecological history recorded. Obstetrics History GPAL:G 0 P 0 0 0 0 Past Encounters Encounter ID Performer Location Encounter Start Date Encounter Closed Date Diagnosis/Indication Diagnosis SNOMED-CT Code Diagnosis ICD10 Code Diagnosis IMO Codes Diagnosis Note [id number] Yomi Lemus DO [facility] [address] [place] [address] 07/23/2020 14:33:40 07/24/2020 14:00:58 Low back pain 956914096 M54.5 Thoracic back pain 61207 8004 M54.6 Neuropathy 958697066 G62 .9 Lumbar spondylosis 68213 0009 M47.896 Overweight 531160635 E66 .3 Diet: 1800 Calories Low Glycemic Diet Exercise: Work up to 30 min 5x/week as tolerated [id number] Yomi Lemus DO [facility] [address] [place] [address] 10/01/2020 11:49:20 10/01/2020 23:41:46 Overweight 283279470 E66.3 Z68.29 Adjusting Diet and incorporat ing routine exercise to help improve BMI and lower risk - as patient is physically able - discussed Lumbar radiculopathy 128 121723 M54.16 Pre-surgery testing 1104 14974 Z01.89 Spinal meir nosis of lumbar region 95229747 M48.061 History of lumbar laminectomy 3213482332 2797872 Z98.890 Degenerati on of lumbar intervertebral disc 31579564 M51.36 Degenerati ve spondylolisthesis 0569174 M43.10 [id number] Oriana Esqueda, ANP- [facility] [address] [place] [address] 12/17/2020 17:22:31 12/18/2020 14:55:44 Postoperative visit 446961030 Z09 [id number] Jere Kong MD [facility] [address] [place] [address] 01/16/2021 12:43:18 01/16/2021 23:27:16 Postoperative visit 778174564 Z09 Overweight 547114100 E66 .3 Diet: 1800 Calories Low Glycemic Diet Exercise: Work up to 30 min 5x/week as tolerated Body mass index 25-29 - overweight 067372033 Z68.29 History of lumbar fusion 4195247255 9106 Z98.1 Degenerati on of lumbar intervertebral disc 84064289 M51.36 [id number] Yomi Lemus, [facility] [place] [address] [place] [address] 04/15/2021 10:42:40 04/16/2021 15:02:37 Body mass index 25-29 - overweight 508282523 Z68.29 Z68.28 History of lumbar fusion 5058304469 9106 Z98.1 Degenerati on of lumbar intervertebral disc 96628080 M51.36 Overweight 159918650 E66 .3 Diet: 1800 Calories Low Glycemic Diet Exercise: Work up to 30 min 5x/week as tolerated [id number] Yomi Lemus, DO [facility] [address] [place] [address] 10/28/2021 12:47:36 10/28/2021 22:27:58 Body mass index 25-29 - overweight 543611110 Z68.29 Z68.28 History of lumbar fusion 0940742223 9106 Z98.1 Degenerati on of lumbar intervertebral disc 70294310 M51.36 Overweight 169797482 E66 .3 Diet: 1800 Calories Low Glycemic Diet Exercise: Work up to 30 min 5x/week as tolerated Health Concerns Section Related Observation LastModified by Organization Detai ls LastModified Time None Recorded Concern Status LastModified by Organization Details LastModified Time None Recorded Advance Directives Directive N: 04/15/2021 Payers Insurance Date Sequence Insurance Name Policy Number Policy Horton Covered Member ID Horton Member ID Guarantor Name 04/15/2021 2 [place] Odessa Snider [id number] Odessa Snider 10/27/2021 1 [facility] [place] [facility]FORE 03/07/2023 (MEDICARE REPLACEMENT/A DVANTAGE - HMO) [id number] Odessa Snider [id number] Odessa Snider Notes Date Note Type Note Provider Name and Address Organization Details Recorded Time 10/01/2020 text/html 55-year-old female that returns to clinic today to discuss surgical options. Patient complains of lower back pain with pain radiating into bilateral lateral legs, both feet, and all toes. Also reports pain in her bilateral upper inner thighs. Endorses numbness in the entirety of both legs and numbness and tingling in the plantar aspect of both feet and her toes. Denies lower extremity weakness, stating that she is limited due to pain. Endorses intermittent urinary urgency/urge incontinence, present for at least 3 to 4 months. Denies bowel dysfunction. Endorses numbness and tingling on both sides of her vagina, which she states has been present for at least 1-1/2 years. Denies any numbness or tingling in her buttocks. Prior attempts at symptom management have included time, rest, activity avoidance and modification, and treating with interventional pain management. Patient underwent a spinal cord stimulator trial. She states that she got approximately 50 to 60% of relief from back muscle spasms, but it did not help her lower back pain or leg symptoms. In approximately 2013 or 2014, patient underwent a right L5-S1 decompression with a CORE surgeon. Prior to surgery, she reports that she was having the same back and radiating leg symptoms and following surgery, her symptoms were alleviated, but never completely resolved. Patient also states that she is having her osteopenia treated with calcium and vitamin D supplements. LALO Ramachandran [address] [place] [address] [address], [place], [address], [facility] 10/10/2020 17:32:21 12/17/2020 text/html Patient is a 55-year-old female approximately 4 weeks status post multi staged lumbar surgery stage I L5-S1 anterior lumbar interbody fusion, placement of titanium, lordotic interbody cage with integral fixation, L5-S1 date of surgery 11/20/[address] Lemus stage II L5-S1 posterior lateral arthrodesis, L5-S1 posterior spinal instrumentation performed by Dr. Lemus on 11/21/2020 for treatment of advanced L5-S1 degenerative disc disease, L5-S1 spondylosis, retrolisthesis of L5 on S1, lumbar spinal stenosis with radiculopathy, chronic low back pain, history of previous right L5-S1 decompression surgery performed by another surgeon, trace/very mild L4-L5 spondylolisthesis without dynamic instability, Oriana Esqueda, ANP-BC [address], [place], [address], [facility] 12/17/2020 18:32:23 01/16/2021 text/html Patient is a 55-year-old female approximately 8 weeks status post multi staged lumbar surgery stage I L5-S1 anterior lumbar interbody fusion, placement of titanium, lordotic interbody cage with integral fixation, L5-S1 date of surgery 11/20/[address] Lemus stage II L5-S1 posterior lateral arthrodesis, L5-S1 posterior spinal instrumentation performed by Dr. Lemus on 11/21/2020 for treatment of advanced L5-S1 degenerative disc disease, L5-S1 spondylosis, retrolisthesis of L5 on S1, lumbar spinal stenosis with radiculopathy, chronic low back pain, history of previous right L5-S1 decompression surgery performed by another surgeon, trace/very mild L4-L5 spondylolisthesis without dynamic instability. Patient reports that she is doing very well postoperatively. She reports that she has complete resolution of her lower back pain and no radicular symptoms. Patient reports no bowel or bladder incontinence, or saddle anesthesia. She reports that she is extremely grateful for the surgery and is pleased with her results. Patient has been compliant with activity restrictions as well as lumbar brace use. LALO Celis [address], [place], [address], [facility] 01/16/2021 16:12:47 04/15/2021 text/html Patient is a 55-year-old female approximately 5 months status post multi staged lumbar surgery stage I L5-S1 anterior lumbar interbody fusion, placement of titanium, lordotic interbody cage with integral fixation, L5-S1 date of surgery 11/20/[address] Lemus stage II L5-S1 posterior lateral arthrodesis, L5-S1 posterior spinal instrumentation performed by Dr. Lemus on 11/21/2020 for treatment of advanced L5-S1 degenerative disc disease, L5-S1 spondylosis, retrolisthesis of L5 on S1, lumbar spinal stenosis with radiculopathy, chronic low back pain, history of previous right L5-S1 decompression surgery performed by another surgeon, trace/very mild L4-L5 spondylolisthesis without dynamic instability. The patient is continuing to do very well postoperatively. She reports only occasional low back pain but otherwise denies any pain, numbness, paresthesias to her lower extremities. She denies any bowel or bladder incontinence or saddle anesthesia. Patient states she did not complete physical therapy after surgery because she was doing so well. She has no concerns and is pleased with her surgical result so far. Willy Yost, [facility] [address], [place], [address], [facility] 04/15/2021 11:07:06 10/28/2021 text/html Patient is a 55-year-old female approximately 11 months status post multi staged lumbar surgery stage I L5-S1 anterior lumbar interbody fusion, placement of titanium, lordotic interbody cage with integral fixation, L5-S1 date of surgery 11/20/[address] Lemus stage II L5-S1 posterior lateral arthrodesis, L5-S1 posterior spinal instrumentation performed by Dr. Lemus on 11/21/2020 for treatment of advanced L5-S1 degenerative disc disease, L5-S1 spondylosis, retrolisthesis of L5 on S1, lumbar spinal stenosis with radiculopathy, chronic low back pain, history of previous right L5-S1 decompression surgery performed by another surgeon, trace/very mild L4-L5 spondylolisthesis without dynamic instability. The patient is continuing to do very well postoperatively. She states she has a very small area of left groin numbness that continues to be numb but otherwise completely denies any radiating pain, numbness, paresthesias to the left lower extremity. Over the past 3 weeks she has experienced some intermittent right buttock and posterior thigh pain. She states this is increased since she has increased her walking over the past few weeks. She denies any other bowel or bladder incontinence or saddle anesthesia. She states she is 100% better when compared to preoperative symptoms. Willy Yost, [facility] [address] [facility] [address], [place], [address], [facility] 10/28/2021 13:50:42 OBGyn Episode No OBEpisode recorded.
--- OUTSIDE RECORDS SUMMARY | 2025-01-08 07:52 | XMS_ITS | Clinical Summary ---
Author Organization [facility] Health Address [address] [place] [address] Care Team Providers Care Unstacker Name Role Phone Unavailable Primary Care Provider Unavailabl e Allergies No known active allergies Medications hydrocodone/jane taminophen (VICODIN ORAL) Take 1 tablet by mouth every 6 (six) hours if needed. Active busPIRone (BUSPAR) 15 mg tablet 10/27/19 22 Active DULoxetine (CYMBALTA) [address] capsule 11/19/19 22 Active gabapentin (NEURONTIN) 300 mg capsule 10/29/19 22 Active medroxyPROGESTE Yeison (PROVERA) 2.5 mg tablet 11/12/19 22 Active methocarbamoL (ROBAXIN) 750 mg tablet 11/19/19 22 Active montelukast (SINGULAIR) 10 mg tablet 10/29/19 22 Active nortriptyline (PAMELOR) 50 mg capsule 12/19/19 22 Active predniSONE (DELTASONE) 20 mg tablet 12/19/19 22 Active SUMAtriptan (IMITREX) 100 mg tablet 10/16/19 22 Active topiramate (TOPAMAX) 100 mg tablet 12/17/19 22 Active zolpidem (AMBIEN) 10 mg tablet 10/16/19 22 Active HYDROcodone-jane taminophen (NORCO) 7.5-325 mg tablet 01/23/20 22 Active cyclobenzaprine (FLEXERIL) 10 mg tablet cyclobenzaprine 10 mg tablet TAKE 1 TABLET BY MOUTH THREE TIMES DAILY NEEDED FOR PAIN Active estradioL (ESTRACE) 0.5 mg tablet estradiol 0.5 mg tablet Active meloxicam (MOBIC) 15 mg tablet meloxicam 15 mg tablet TAKE 1 TABLET BY MOUTH EVERY DAY Active ondansetron ODT (ZOFRAN-ODT) 4 mg dispersible tablet 02/23/20 23 Active progesterone (PROMETRIUM) 100 mg capsule progesterone micronized 100 mg capsule TAKE 1 CAPSULE BY MOUTH EVERY NIGHT AT BEDTIME Active QUEtiapine (SEROquel) 25 mg tablet Take 25-50 mg by mouth every night. 05/26/19 Active ibuprofen (ADVIL,MOTRIN) 600 mg tablet Take 1 tablet (600 mg total) by mouth every 6 (six) hours. 30 tablet 06/10/19 Active Active Problems Problem Noted Date Diagnosed Date Seasonal allergies 06/09/2022 Mixed anxiety depressive disorder 06/09/2022 Migraine headache 06/09/2022 Irritable bowel syndrome 06/09/2022 Chronic pain 06/09/2022 Fibromyalgia 01/01/2022 Arthritis 01/01/2022 Social History Tobacco Use Types Packs/Day Years Used Date Smoking Tobacco: Never Assessed Comments Unknown Sex and Gender Information Value Date Recorded Sex Assigned at Not on file Legal Sex Female 9:21 AM PDT Gender Identity Not on file Sexual Orientation Not on file Last Filed Vital Signs Vital Sign [place] Time Taken Comments Blood Pressure 133/86 06/09/2022 1:46 PM MST Pulse 90 06/09/2022 1:46 PM [facility] Temperature - - Respiratory Rate - - Oxygen Saturation - - Inhaled Oxygen Concentration - - Weight - - Height - - Body Mass Index - - Plan of Treatment Health Maintenance Due Date Last Done Comments Periodontal Maintenance 1965 Dental Oral Exam 07/03/2022 01/01/2022 Dental X-Ray: Bitewings 07/03/2022 01/01/2022 Scaling and Root Planing 02/07/2024 022, 01/23/2022, 01/23/2022, Additional history exists Dental X-Ray: Full Mouth 01/03/2025 01/02/2022, 12/07 Dental X-Ray: Panoramic 01/03/2025 01/02/2022, 01/01 FIT-DNA Discontinued 09/26/2019 Procedures Procedure Name Priority Date/Time Associated Diagnosis Comments UR PERIODONTAL SCALING AND ROOT PLANING - FOUR OR MORE TEETH PER QUADRANT Routine 01/23/2022 8:30 AM [facility] PANORAMIC RADIOGRAPHIC IMAGE Routine 01/01/2022 11:45 AM MST INTRAORAL - COMPREHENSIVE SERIES OF RADIOGRAPHIC IMAGES Routine 01/01/2022 11:45 AM MST COMPREHENSIVE ORAL EVALUATION - NEW OR ESTABLISHED PATIENT Routine 01/01/2022 11:45 AM MST from Last 3 Months or Most Recently Relevant to Health Maintenance Insurance [address] [place], [place] [address]O
--- OUTSIDE RECORDS SUMMARY | 2025-01-08 07:52 | XMS_ITS | Encounter Summary ---
Author Organization [facility] Health Address [address] [place] [address] Care Team Providers Care Music Video Producer Name Role Phone Unavailable Primary Care Provider Unavailabl e Prior Encounters Date Type Department Care Team Description 10/01/2022 10:00 AM MST Office Visit [facility] [id number] [place] [address], [address] [place] [address] Gab Cortez DDS 09/29/2022 Telephone [facility] [id number] [place] [address], [address] [place] [address] Gab Cortez DDS 09/15/2022 11:00 AM MST Office Visit [facility] [id number] [place] [address], [address] [place] [address] Gab Cortez DDS 09/15/2022 9:30 AM MST Office Visit [facility] [id number] [place] [address], [address] [place] [address] Chandana Serna DDS 06/24/2022 9:00 AM MST Office Visit [facility] [id number] [place] [address], [address] [place] [address] Gab Cortez DDS 06/09/2022 1:45 PM MST Office Visit [facility] [id number] [place] [address], [address] [place] [address] Chandana Serna DDS 01/23/2022 9:00 AM MST Office Visit [facility] [id number] [place] [address], [address] [place] [address] Leatha Stevens DDS 01/23/2022 8:30 AM [facility] Office Visit [facility] [address], [address] [place] [address] Susie Madera, [facility] 01/15/2022 9:30 AM [facility] Office Visit [facility] [address], [address] [place] [address] Leatha Stevens DDS 01/01/2022 11:45 AM [facility] Office Visit [facility] [address], [address] [place] [address] Leatha Stevens DDS Last Filed Vital Signs Vital Sign [place] Time Taken Comments Blood Pressure 133/86 06/09/2022 1:46 PM [facility] Pulse 90 06/09/2022 1:46 PM [facility] Temperature - - Respiratory Rate - - Oxygen Saturation - - Inhaled Oxygen Concentration - - Weight - - Height - - Body Mass Index - - Plan of Treatment Not on file Procedures Procedure Name Priority Date/Time Associated Diagnosis Comments 30 CEMENT CROWN Routine 10/01/2022 10:00 AM MST 20 CEMENT CROWN Routine 10/01/2022 10:00 AM MST 30 CUSTOM FABRICATED ABUTMENT INCLUDES PLACEMENT Routine 09/15/2022 11:00 AM MST 20 CUSTOM FABRICATED ABUTMENT INCLUDES PLACEMENT Routine 09/15/2022 11:00 AM MST 20 IMPLANT ZIRCONIA CROWN Routine 2022 11:00 AM MST 30 IMPLANT ZIRCONIA CROWN Routine 2022 11:00 AM MST RE-EVALUATION POST-OPERATIVE OFFICE VISIT Routine 09/15/2022 9:30 AM MST RE-EVALUATION POST-OPERATIVE OFFICE VISIT Routine 06/24/2022 9:00 AM MST 20 IMPLANT Routine 06/09/2022 1:45 PM MST 30 IMPLANT Routine 06/09/2022 1:45 PM MST DELIVER STAYPLATE Routine 01/23/2022 9:0 0 AM MST ORAL HYGIENE INSTRUCTIONS Routine 2021 8:30 AM MST UR GABRIELE DECON/QD Routine 01/23/2022 8:30 AM MST TOPICAL APPLICATION OF FLUORIDE VARNISH Routine 01/23/2022 8:30 AM MST LR GABRIELE DECON/QD Routine 01/23/2022 8:30 AM MST LL GABRIELE DECON/QD Routine 01/23/2022 8:30 AM MST UL GABRIELE DECON/QD Routine 01/23/2022 8:30 AM MST UR ANTIBACT IRR/QUAD Routine 01/23/2022 8:30 AM MST LL ANTIBACT IRR/QUAD Routine 01/23/2022 8:30 AM MST LR ANTIBACT IRR/QUAD Routine 01/23/2022 8:30 AM MST UL ANTIBACT IRR/QUAD Routine 01/23/2022 8:30 AM MST LR PERIODONTAL SCALING AND ROOT PLANING - FOUR OR MORE TEETH PER QUADRANT Routine 01/23/2022 8:30 AM MST LL PERIODONTAL SCALING AND ROOT PLANING - FOUR OR MORE TEETH PER QUADRANT Routine 01/23/2022 8:30 AM MST UL PERIODONTAL SCALING AND ROOT PLANING - FOUR OR MORE TEETH PER QUADRANT Routine 01/23/2022 8:30 AM MST UR PERIODONTAL SCALING AND ROOT PLANING - FOUR OR MORE TEETH PER QUADRANT Routine 01/23/2022 8:30 AM MST RE-EVALUATION POST-OPERATIVE OFFICE VISIT Routine 01/15/2022 9:30 AM MST 30 INTERIM PARTIAL DENTURE (MANDIBULAR) Routine 01/01/2022 11:45 AM MST 30 GUIDED TISSUE REGENERATION, NATURAL TEETH - RESORBABLE BARRIER, PER SITE Routine 01/01/2022 11:45 AM MST 30 BONE REPLACEMENT GRAFT FOR RIDGE PRESERVATION - PER SITE - MANDIBLE Routine 01/01/2022 11:45 AM MST 30 EXTRACTION, ERUPTED TOOTH REQUIRING REMOVAL OF BONE AND/OR SECTIONING OF TOOTH Routine 01/01/2022 11:45 AM MST 20 GUIDED TISSUE REGENERATION, NATURAL TEETH - RESORBABLE BARRIER, PER SITE Routine 01/01/2022 11:45 AM MST 20 BONE REPLACEMENT GRAFT FOR RIDGE PRESERVATION - PER SITE - MANDIBLE Routine 01/01/2022 11:45 AM MST 20 EXTRACTION, ERUPTED TOOTH REQUIRING REMOVAL OF BONE AND/OR SECTIONING OF TOOTH Routine 01/01/2022 11:45 AM MST INTRAORAL PHOTO Routine 01/01/2022 11:45 AM MST INTRAORAL PHOTO Routine 01/01/2022 11:45 AM MST INTRAORAL PHOTO Routine 01/01/2022 11:45 AM MST INTRAORAL PHOTO Routine 01/01/2022 11:45 AM MST INTRAORAL - COMPREHENSIVE SERIES OF RADIOGRAPHIC IMAGES Routine 01/01/2022 11:45 AM MST COMPREHENSIVE ORAL EVALUATION - NEW OR ESTABLISHED PATIENT Routine 01/01/2022 11:45 AM MST PANORAMIC RADIOGRAPHIC IMAGE Routine 01/01/2022 11:45 AM MST 2 PFM CROWN Routine 01/01/2022 12:00 AM MST 19 PFM CROWN Routine 01/01/2022 12:00 AM MST 18 PFM CROWN Routine 01/01/2022 12:00 AM MST 13 PFM CROWN Routine 01/01/2022 12:00 AM MST 14 PFM CROWN Routine 01/01/2022 12:00 AM MST 14 ROOT CANAL Routine 01/01/2022 12:00 AM MST Visit Diagnoses Not on file Insurance [address] [place], [place] [id number]
--- OUTSIDE RECORDS SUMMARY | 2025-01-08 07:52 | XMS_ITS | Patient Health Record ---
Author Organization [facility] Address [address] [place] [address] Care Team Providers Care Baggage Security Checker Name Role Phone AROLDO CASTRO, DAWOOD Primary Care Provider Skye ORO MD, KAHLIL Unavailable [phone] Bertin Ann, Garett laws Allergies No Known Allergies Reason For Referral No Information Medications Medication SIG (Take, Route, Frequency, Duration) Notes Start Date End Date Status Gabapentin 300 MG 3 capsule Orally Three times a day; Duration: 90 days Active DULoxetine HCl 30 MG 3 capsule Orally on ce a day; Duration: 90 days Active Nortriptyline HCl Ac tive Magnesium Active SUMAtriptan Active Nortriptyline HCl 50 MG 1 capsule Orally Once a day; Duration: 90 days 12/18/2021 Active HYDROcodone-Acetaminophen 7.5-325 MG 1 tablet as needed Orally three times a day prn pain; Duration: 30 days TX: G89.4 05/26/2022 Active Gabapentin 300 MG 3 tablet Orally Thre e times a day; Duration: 30 day(s) Active busPIRone HCl Active tiZANidine HCl 4 MG 1 tablet as needed Orally every 8 hrs; Duration: 30 days Active Vitamin D3 Active Topiramate Active Cyclobenzaprine HCl 10 MG TAKE 1 TABLET BY MOUTH THREE TIMES DAILY NEEDED FOR PAIN; Duration: 30 Active Social History Tobacco Use: Social History Observation Description Date Details (start date - stop date) Never Smoker NA - NA Sex Assigned At : Social History Observation Description Sex Assigned At Female Alcohol Screen (Audit-C) Question Answer Notes Did you have a drink containing alcohol in the p ast year? No Points 0 Interpretation Negative Tobacco use other than smoking: Question Answer Notes Are you an other tobacco user? 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) Active confirmed Problem Information temporarily unavailable Fibromyalgia (M79.7) Active confirmed Problem Information temporarily unavailable Failed back syndrome (M96.1) Active confirmed Problem Information temporarily unavailable Postlaminectomy syndrome (M96.1) Active confirmed Problem Information temporarily unavailable 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 confirmed Problem Information temporarily unavailable Chronic narcotic dependence (F11.20) Active confirmed Problem Information temporarily unavailable Chronic pain syndrome (G89.4) Active confirmed Problem Information temporarily unavailable Chronic lumbar radiculopathy (M54.16) Active confirmed Plan Of Treatment No Information Insurance Providers Payer Name Payer Address Payer Phone Subscriber Number Group Number Insured Name Patient Relationship to Insured Coverage Start Date Coverage End Date [employer] Preferred Medicare HMO [address] [place] [phone] [id number] [facility] MARY TAMAYO Self - patient is the insured Medical (General) History Medical History History ICD Code IBS migraines Fibromyalgia Surgical History Surgery Date(Month/Year) Lumbar Microdiscectomy L5 Gallbladder Cholescystectomy Deviated septum surgery Lumbar spinal decompression L5-S1
== END 2025-01-08 07:48 | disposition home or self-care (01) ==
PROVIDERS: PCP Internal Medicine; Visit Provider Nurse Practitioner Family
DX: Z12.31 Encounter for screening mammogram for malignant neoplasm of breast (principal)
CPT/HCPCS: 99199